=== PATIENT | female | born 1975 ===

== ENCOUNTER 2019-02-17 09:09 | Emergency (ER) | payer OTHER ==
--- NOTE | 2019-02-17 09:23 | ED ---
Throat Pain/Nasal Congestion - HPI Summary HPI Summary: A 43 y/o F presents to ED by car c/o sore throat onset yesterday. Denies rhinorrhea. Patient is afebrile in ED. Her throat pain is rated 5 out of 10. - History of Current Complaint Chief Complaint: EDThroatPain Time Seen by Provider: 02/17/19 09:20 Hx Obtained From: Patient Onset/Duration: Lasting Days - yesterday, Still Present Severity: Severe Associated Signs And Symptoms: Negative: Nasal Discharge - Allergies/Home Medications Allergies/Adverse Reactions: Allergies Allergy/AdvReac Type Severity Reaction Status Date / Time No Known Allergies Allergy Verified 02/17/19 09:31 Home Medications: Home Medications NK [No Home Medications Reported] 02/17/19 [History Confirmed 02/17/19] PMH/Surg Hx/FS Hx/Imm Hx Previously Healthy: Yes Opthamlomology History: Denies: Hx Legally Blind EENT History: Denies: Hx Deafness - Cancer History Hx Chemotherapy: No Hx Radiation Therapy: No Infectious Disease History: Unable to Obtain/Confirm Infectious Disease History: Denies: Traveled Outside the [place] in Last 30 Days - Family History Family History: neg: breast CA - Social History Occupation: Unemployed Lives: With Family Review of Systems Negative: Fever Positive: Sore Throat. Negative: Nasal Discharge All Other Systems Reviewed And Are Negative: Yes Physical Exam - Summary Physical Exam Summary: Appearance: The patient is well-nourished in no acute distress and in no acute pain. Skin: The skin is warm and dry and skin color reflects adequate perfusion. HEENT: The head is normocephalic and atraumatic. The pupils are equal and reactive. The conjunctivae are clear and without drainage. Nares are patent and without drainage. Mouth reveals moist mucous membranes. Erythematous swollen posterior pharynx bilaterally, no exudate, no lymphadenopathy. The external ears are intact. The ear canals are patent and without drainage. The tympanic membranes are intact. Neck: the neck is supple with full range of motion and non-tender. There are no carotid bruits. There is no neck vein distension. Respiratory: Chest is non-tender. Lungs are clear to auscultation and breath sounds are symmetrical and equal. Cardiovascular: Heart is regular rate and rhythm. There is no murmur or rub auscultated. There is no peripheral edema and pulses are symmetrical and equal. Abdomen: The abdomen is soft and non-tender. There are normal bowel sounds heard in all four quadrants and there is no organomegaly palpated. Musculoskeletal: There is no back tenderness noted. Extremities are non-tender with full range of motion. There is good capillary refill. There is no peripheral edema or calf tenderness elicited. Neurological: Patient is alert and oriented to person, place and time. The patient has symmetrical motor strength in all four extremities. Cranial nerves are grossly intact. Deep tendon reflexes are symmetrical and equal in all four extremities. Psychiatric: The patient has an appropriate affect and does not exhibit any anxiety or depression. Triage Information Reviewed: Yes Vital Signs On Initial Exam: Initial Vitals Temp Pulse Resp BP Pulse Ox 98.9 F 88 17 128/92 97 02/17/19 09:11 02/17/19 09:11 02/17/19 09:11 02/17/19 09:11 02/17/19 09:11 Vital Signs Reviewed: Yes Diagnostics - Vital Signs Vital Signs Temp Pulse Resp BP Pulse Ox 02/17/19 09:11 98.9 F 88 17 128/92 97 - Laboratory Lab Statement: Any lab studies that have been ordered have been reviewed, and results considered in the medical decision making process. Re-Evaluation - Re-Evaluation 1 Re-Evaluation Time: 11:40 Change: Unchanged Comment: Discussing negative mono and strep results. EENT Course/Dx - Course Course Of Treatment: Ms. Yang presented with a day or 2 of sore throat as her only symptom. She does not speak much [place] and we used her phone with her sister as marketing officer. She was nontoxic in appearance with stable vitals. RST and Monospot were negative and I recommended symptomatic treatment for likely viral pharyngitis. - Diagnoses Provider Diagnoses: Pharyngitis Discharge - Sign-Out/Discharge Documenting (check all that apply): Patient Departure - D/C Patient Received Moderate/Deep Sedation with Procedure: No - Discharge Plan Condition: Stable Disposition: HOME Patient Education Materials: Pharyngitis (ED) Referrals: Deanna Elder MD [Primary Care Provider] - 3 Days Additional Instructions: Please return to the ED if you experience new or worsening symptoms. Follow up with your primary care provider in 2-3 days. - Billing Disposition and Condition Condition: STABLE Disposition: Home - Attestation Statements Document Initiated by Mathewe: Yes Documenting Scribe: Hernandez Robins Provider For Whom Scribe is Documenting (Include Credential): Dr. Beto Johnson MD Scribe Attestation: I, Hernandez Robins, scribed for Dr. Beto Johnson MD on 02/17/19 at 1443. Scribe Documentation Reviewed: Yes Provider Attestation: The documentation as recorded by the lauraibchivo, Hernandez Robins accurately reflects the service I personally performed and the decisions made by me, Dr. Beto Johnson MD Status of Scribe Document: Viewed
[2019-02-17 09:43] LABS: Rapid Strep Molecular Negative (Negative)
[2019-02-17 11:51] VITALS: BP 137/90
== END 2019-02-17 11:50 | disposition home or self-care (01) ==
LOC: ED 09:09
DX: J02.9 Acute pharyngitis, unspecified (principal)
CPT/HCPCS: 36415; 86308; 87651; 99282

== ENCOUNTER → 2019-02-19 16:10 | Emergency (ER) | payer OTHER ==
[~2019-02-19 16:10] MED LIST: Benzocaine/Butamben/Tetracain (CETACAINE - SINGLE USE) 5 gm TOPICAL ONE; Clindamycin 600 MG IVPREMIX(* 600 MG/50 ML SDV IV ONE; Clindamycin 600 MG/D5W BAG(*) 600 MG/50 ML BAG IV ONE; D5NS 0.9% 1000 ML BAG* 1,000 ML IV ONE; Dexamethasone IV* 4 MG/ML 5 ML VIAL (20 MG) IVPB ONE; Ketorolac INJ* 30 MG/ML 1 ML VIAL IV ONE; NS 0.9% 1000 ML** 1,000 ML IV ONE
--- NOTE | 2019-02-19 17:52 | ED ---
Throat Pain/Nasal Congestion - HPI Summary HPI Summary: Patient complains of sore throat 5 days, pain with speaking and swallowing, limited range of motion of jaw. Seen here 2 days ago for same on 02/17, diagnosed with viral pharyngitis and recommended symptomatic treatment. Patient was strep and mono negative at that time. Patient complains of progressive sore throat symptoms with radiation of pain to right ear and right side of head, states she has not had anything to eat or drink since yesterday. Denies cough, SOB, CP, N/V/D, neck stiffness, abdominal pain, change in urine, change in BM. Patient accompanied by friend who is translating from [place]. - History of Current Complaint Chief Complaint: EDThroatPain Time Seen by Provider: 02/19/19 16:39 Hx Obtained From: Patient, Family/Want Ad Supervisor Onset/Duration: Gradual Onset, Lasting Days Severity: Severe Associated Signs And Symptoms: Positive: Dysphagia Cough: None - Allergies/Home Medications Allergies/Adverse Reactions: Allergies Allergy/AdvReac Type Severity Reaction Status Date / Time No Known Allergies Allergy Verified 02/19/19 16:15 PMH/Surg Hx/FS Hx/Imm Hx Endocrine/Hematology History: Denies: Hx Anticoagulant Therapy Cardiovascular History: Denies: Hx Pacemaker/ICD History: Denies: Hx Dialysis Sensory History: Denies: Hx Legally Blind, Hx Deafness Opthamlomology History: Denies: Hx Eye Prosthesis, Hx Legally Blind EENT History: Denies: Hx Deafness Neurological History: Denies: Hx Dementia Psychiatric History: Denies: Hx Autism - Cancer History Hx Chemotherapy: No Hx Radiation Therapy: No Infectious Disease History: No Infectious Disease History: Denies: Traveled Outside the [place] in Last 30 Days - Family History Known Family History: Positive: Non-Contributory Family History: neg: breast CA - Social History Alcohol Use: Occasionally Substance Use Type: Reports: None Smoking Status (MU): Current Every Day Smoker Review of Systems Constitutional: Negative Eyes: Negative Positive: Sore Throat, Ear Ache Cardiovascular: Negative Respiratory: Negative Gastrointestinal: Negative Genitourinary: Negative Musculoskeletal: Negative Skin: Negative Positive: Headache Psychological: Normal All Other Systems Reviewed And Are Negative: Yes Physical Exam - Summary Physical Exam Summary: TMs normal Bilaterally. Peritonsillar swelling extending to uvula on right side. No displacement of uvula from midline. Airway open and intact. Mild tonsillar swelling on left side. Lung sounds clear to auscultation bilaterally. Triage Information Reviewed: Yes Vital Signs On Initial Exam: Initial Vitals Temp Pulse Resp BP Pulse Ox 100.6 F 107 16 136/87 97 02/19/19 16:11 02/19/19 16:11 02/19/19 16:11 02/19/19 16:11 02/19/19 16:11 Vital Signs Reviewed: Yes Appearance: Positive: Well-Appearing Skin: Positive: Warm Head/Face: Positive: Normal Head/Face Inspection Eyes: Positive: Normal ENT: Positive: TMs normal, Tonsillar swelling, Trismus, Muffled voice, Hoarse voice, Uvula midline. Negative: Tonsillar exudate, Dental tenderness, Sinus tenderness Neck: Positive: Supple Respiratory/Lung Sounds: Positive: Clear to Auscultation Cardiovascular: Positive: Normal Abdomen Description: Positive: Nontender Musculoskeletal: Positive: Normal Neurological: Positive: Normal Psychiatric: Positive: Normal AVPU Assessment: Alert - Michael Coma Scale Best Eye Response: 4 - Spontaneous Best Motor Response: 6 - Obeys Commands Best Verbal Response: 5 - Oriented Coma Scale Total: 15 Diagnostics - Vital Signs Vital Signs Temp Pulse Resp BP Pulse Ox 02/19/19 16:11 100.6 F 107 16 136/87 97 - Laboratory Result Diagrams: 02/19/19 17:54 02/19/19 17:54 Lab Statement: Any lab studies that have been ordered have been reviewed, and results considered in the medical decision making process. EENT Course/Dx - Course Course Of Treatment: Patient complains of sore throat 5 days, pain with speaking and swallowing, limited range of motion of jaw. Seen here 2 days ago for same on 02/17, diagnosed with viral pharyngitis and recommended symptomatic treatment. Patient was strep and mono negative at that time. Patient complains of progressive sore throat symptoms with radiation of pain to right ear and right side of head, states she has not had anything to eat or drink since yesterday. Denies cough, SOB, CP, N/V/D, neck stiffness, abdominal pain, change in urine, change in BM. Patient accompanied by friend who is translating from [place]. Physical exam:TMs normal Bilaterally. Peritonsillar swelling extending to uvula on right side. No displacement of uvula from midline. Airway open and intact. Mild tonsillar swelling on left side. Lung sounds clear to auscultation bilaterally. Vital signs within normal limits. WBC 12.0. CRP 18. Discussed patient with ENT on-call Dr fragoso who recommended no I&D, Augmentin or clindamycin by mouth, by mouth steroids and follow-up in the clinic tomorrow. Patient not tolerating by mouth intake well. Patient given D5 and S1 liter IV, Decadron 10 mg IV, clindamycin 600 mg IV, Toradol 30 mg IV. Patient throat sprayed with Cetacaine, with relief of pain. Patient states she will follow up with Dr. Fragoso in clinic tomorrow. - Diagnoses Provider Diagnoses: Peritonsillar abscess Discharge - Sign-Out/Discharge Documenting (check all that apply): Patient Departure Patient Received Moderate/Deep Sedation with Procedure: No - Discharge Plan Condition: Stable Disposition: HOME Prescriptions: Amoxicillin/Clavulanate TAB* [Augmentin TAB 875*] 875 mg PO BID #20 tab Lidocaine 2% VISCOUS* [Xylocaine 2% Viscous*] 15 ml SWISH SPIT Q6H PRN #1 btl PRN Reason: Pain Patient Education Materials: Peritonsillar Abscess (ED) Referrals: Deanna Elder MD [Primary Care Provider] - Michel Fragoso MD [Medical Doctor] - Additional Instructions: Called research environmental engineer Dr. Fragoso's clinic tomorrow morning for follow-up. Take antibiotics as directed. Use viscous lidocaine for pain control. Drink plenty of fluids to maintain hydration. Return to the ED for any new or worsening symptoms. - Billing Disposition and Condition Condition: STABLE Disposition: Home
[2019-02-19 18:01] LABS: ABS Basophils 0.1 10^3/ul (0-0.2); ABS Eosinophils 0.1 10^3/ul (0-0.6); ABS Lymphocytes 1.9 10^3/ul (1.0-4.8); ABS Monocytes 0.9 10^3/ul (0-0.8); Eosinophil % 0.6 %; Hematocrit 38 % (35-47); Hemoglobin 12.5 g/dL (12.0-16.0); Lymphocyte % 15.5 %; Mean Corpuscular HGB Conc 33 g/dL (31-36); Mean Corpuscular Hemoglobin 30 pg (27-31); Mean Corpuscular Volume 91 fL (80-97); Mean Platelet Volume 8.3 fL (7.4-10.4); Platelet Count 264 10^3/uL (150-450); Red Blood Count 4.15 10^6 /uL (3.70-4.87); Red Cell Distribution Width 13 % (10-15)
[2019-02-19 18:19] LABS: Albumin/Globulin Ratio 1.3 (1-3); BUN/Creatinine Ratio 13.5 (8-20); C Reactive Protein 18.62 mg/L (<8.01); Calcium 9.1 mg/dL (8.6-10.3); EGFR African American 102.7 (>60); EGFR Non-African American 84.9 (>60); Globulin 3.1 g/dL (2-4); Potassium 3.8 mmol/L (3.5-5.0); Total Bilirubin 0.5 mg/dL (0.2-1.0); Total Protein 7.1 g/dL (6.4-8.9)
[2019-02-19 18:44] LABS: Rapid Strep Molecular Negative (Negative)
[2019-02-19 19:40] VITALS: BP 112/50
== END | disposition home or self-care (01) ==
LOC: ED 16:10
DX: J36 Peritonsillar abscess (principal); F17.290 Nicotine dependence, other tobacco product, uncomplicated
CPT/HCPCS: 36415; 80053; 85025; 86140; 87651; 96361; 96365; 96375; 99282; J1100; J1885